=== PATIENT | female | born 1970 | race Caucasian/White ===

== ENCOUNTER 2018-09-22 20:42 | Emergency (ER) | payer OTHER ==
[~2018-09-22] VITALS: Ht 167.6 cm; Wt 113.4 kg
--- OUTSIDE RECORDS SUMMARY | 2018-09-22 20:45 | XMS REPORT ---
Author Author [facility] Address Unknown Phone Unavailable Care Team Providers Care Travel Director Name Role Phone DR Eloisa JENKINS Unavailable Unavailable Tri ROMAN Unavailable Unavailable BA, DR OLIVARES Unavailable Unavailable VIERA, DR MORALES Unavailable Unavailable Problems This patient has no known problems. Allergies, Adverse Reactions, Alerts This patient has no known allergies or adverse reactions. Medications This patient has no known medications. Encounters Start Date/Time End Date/Time Encounter Type Admission Type Attending [facility] Care Department Encounter ID 2018-06-24 23:24:00 2018-06-24 23:24:00 Emergency E MHBL [id number] 2018-03-20 19:25:00 2018-03-20 21:05:00 Emergency E VIVIANE JENKINS [facility] [id number] 2017-07-29 22:12:00 2017-07-29 23:00:00 Emergency E SHMUEL ROMAN [facility] [id number] 2017-03-17 22:42:00 2017-03-18 01:40:00 Emergency E VIVIANE JENKINS [facility] [id number] 2017-02-07 20:32:00 2017-02-07 21:53:00 Emergency E ELISE ROSARIO [facility] [id number] Results Test Description Test Time Test Comments Text Results Atomic Results Result Comments DIRECT INFLUENZA A AND B DETECT 2018-03-20 20:06:00 Direct Exam (test code=DE3) PRESUMPTIVE NEGATIVE FOR THE PRESENCE OF INFLUENZA ANTIGEN CT CHEST W/ CONTRAST *WW*2017-03-18 01:37:42AFTER HOURS SERVICE AT: 03/18/2017 1:36 AMCT Scan of the Chest With ContrastLocation Code [id number]: R52: PAIN, [id number]: COUGHTechnique: Scans were performed on a helical scanner post IV contrast only. One or more of the following dose reduction techniques were used: Automatedexposure control, adjustment of the mA and/or kV according to patient size,and/or utilization of iterative reconstruction technique.Findings:Small focal curvilinear scarring is noted in the right lower lobe. Lungs areotherwise clear. There are no air space densities, consolidation or cavitarylesions. No abnormal pleural thickening or pleural based masses are seen. There is no pleural effusion. There are no endobronchial or endotr acheallesions.There is no evidence of mediastinal, hilar or axillary lymphadenop athy by sizecriteria. Cardiac size is within normal limits. There is no perica rdialeffusion. Aorta is normal in caliber. No abnormal soft tissue enhancement isseen. Impression:Unremarkable CT of the chest. D-DIMER *WW*2017-03-18 00:47:00 * Test Item Value Reference Range Comments D-DIMER (test code=DDI) 246 ng/mL D-DU 0-234 D-DIMER COMMENT (test code=DDCOM) *Level to rule out DVT or PE: <235 ng/mL D-DU* PRO TIME AND PTT *WW*2017-03-18 00:32:00* Test Item Value Reference Range Comments PT (test code=TT) 12.3 s 9.8-13.6 INR (test code=INR) 1.1 INRH (test code=INRH) SUGGESTED THERAPEUTIC RANGE FOR INR: 2.5 - 3.5 For Patients with Prosthetic Valves or Patients with recurrent Thromboembolic Events 2.0 - 3.0 For Most Other Applications PTT (test code=PTT) 25.7 s 20.2-38.0 PTTH (test code=PTTH) To monitor the effectiveness of heparin, we offer the Anti-Xa (Heparin Assay). It can be used for either unfractionated or LMW Heparin. Order Code is ANTI-XA BRAIN NATRIURETIC PROTEIN *WW*2017-03-18 00:23:00* Test Item Value Reference Range Comments proBNP (test code=PBNP) 50 pg/mL 0-125 CARDIAC PROFILE *WW*2017-03-18 00:15:00* Test Item Value Reference Range Comments TROPONIN I (test code=A84) <0.015 ng/mL 0.000-0.045 CKMB (test code=A49) <1.0 ng/mL <=3.6 CPK (test code=32A) 504 IU/L 26-192 AMYLASE AND LIPASE *WW*2017-03-18 00:15:00* Test Item Value Reference Range Comments AMYLASE (test code=10A) 19 U/L 28-100 LIPASE (test code=60A) 213 IU/L 73-393 COMPREHENSIVE METABOLIC BORRERO *WW*2017-03-18 00:15:00* Test Item Value Reference Range Comments GLUCOSE (test code=06D) 131 mg/dL 75-100 SODIUM (test code=01A) 142 mmol/L 136-145 POTASSIUM (test code=01B) 4.1 mmol/L 3.6-5.1 CHLORIDE (test code=04A) 105 mmol/L 98-107 CO2 (test code=02A) 26 mmol/L 22-32 ANION GAP (test code=ANG) 15.1 mmol/L BUN (test code=05D) 10 mg/dL 7-18 CREATININE (test code=03E) 0.8 mg/dL 0.4-1.1 BUN/CREA (test code=BCR) 13 12-20 CALCIUM (test code=09D) 9.2 mg/dL 8.3-9.5 BILI TOTAL (test code=11A) 0.2 mg/dL 0.2-1.0 PROTEIN (test code=07D) 7.0 g/dL 6.4-8.2 ALBUMIN (test code=08D) 3.3 g/dL 3.5-4.8 GLOBULIN (test code=GLB) 3.8 g/dL 1.5-3.8 ALB/GLOB (test code=AGRR) 0.9 1.0-2.6 ALK PHOS (test code=35A) 82 IU/L 42-121 AST (test code=30A) 13 IU/L <=42 ALT (test code=31A) 21 IU/L <=78 DIRECT INFLUENZA A AND B [id number] 00:11:00* Test Item Value Reference Range Comments Direct Exam (test code=DE1) PRESUMPTIVE NEGATIVE FOR THE PRESENCE OF INFLUENZA ANTIGEN SERUM MONOCLONAL *WW*2017-03-18 00:07:00* Test Item Value Reference Range Comments PREG SRM (test code=PGS) NEGATIVE NEGATIVE CBC (INCLUDES AUTOMATED DIFFERENTIAL)*[id number] 00:03:00* Test Item Value Reference Range Comments WBC (test code=WBC) 12.3 10\S\3/uL 4.5-11.0 RBC (test code=RBC) 4.72 10\S\6/uL 4.20-5.60 HGB (test code=HBG) 13.3 g/dL 12.0-15.5 HCT (test code=HCT) 39.8 % 35.0-44.0 MCV (test code=MCV) 84.3 fL 81.0-99.0 MCH (test code=MCH) 28.2 pg 27.0-31.0 MCHC (test code=MCHC) 33.4 g/dL 32.0-36.0 RDW (test code=RDW) 13.4 % 11.5-14.5 PLT (test code=PLT) 280 10\S\3/uL 130-400 MPV (test code=MPV) 10.0 fL 9.4-12.4 NEUTROP # (test code=NE#) 8.1 10\S\3/uL 1.6-8.0 LYMPH # (test code=LY#) 3.1 10\S\3/uL 1.1-3.5 MONOCYTE # (test code=MO#) 0.5 10\S\3/uL 0.0-1.1 EOSINOPH # (test code=EO#) 0.5 10\S\3/uL 0.0-0.7 BASOPHIL # (test code=BA#) 0.1 10\S\3/uL 0.0-0.3 IG # (test code=IG#) 0.04 10\S\3/uL 0.00-0.06 NRBC # (test code=NRBC#) 0.00 10\S\3/uL 0.00-0.01 NEUTROPH % (test code=NE%) 65.8 % 35.0-73.0 LYMPH % (test code=LY%) 25.1 % 20.0-55.0 MONO % (test code=MO%) 4.3 % 2.5-10.0 EOSINOPH % (test code=EO%) 4.1 % 0.0-5.0 BASOPHIL % (test code=BA%) 0.4 % 0.0-2.0 IG % (test code=IG%) 0.3 % 0.0-0.8 NRBC% (test code=NRBC%) 0.0 % 0.0-0.2 MANDIFF (test code=WMDIFF) NO NO RBC MORPH (test code=WRBCMOR) NORMAL XR CHEST 1 VIEW PORTABLE 2017-03-17 23:48:41LOCATION: [id number]: 46-year-old female who presents with a cough.COMMENT: After-hours service at 11:48 p.m.A frontal chest radiograph was obtained at the bedside at 11:41 p.m., andcompared to a prior study of 11/29/16.The lungs are clear and well-aerated. The cardiac silhouette, mona, andmediastinum are within normal limits. The skeleton is intact, and thesurrounding soft tissues are unremarkable. IMPRESSION:Unremarkable portable examination of the chest.THYROID PANEL/SCREEN (TSH) 2016-11-29 20:05:00* Test Item Value Reference Range Comments TSH (test code=WTSH) 2.860 uIU/mL 0.358-3.740 XR CHEST 1 VIEW PORTABLE 2016-11-29 19:36:38LOCATION: [id number]: 46-year-old female who presents with dyspnea.COMMENT: A frontal chest radiograph was obtained at the bedside at 7:27 p.m. and iscompared to a prior study of 06/09/11. The lungs are clear and well-aerated. The cardiac silhouette, mona, andmediastinum are within normal limits. The skeleton is intact, and thesurrounding soft tissues are unremarkable. IMPRESSION:Unremark able portable examination of the chest.
--- OUTSIDE RECORDS SUMMARY | 2018-09-22 20:45 | XMS REPORT | Clinical Summary ---
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 Active levothyroxine (SYNTHROID, Take 112 mcg 0 LEVOXYL) 112 mcg tablet by mouth daily. Active hydrocodone/acetaminophen Take 1 tablet 0 (VICODIN ORAL) by mouth daily. Active aspirin 81 mg chewable Chew 81 mg 0 tablet daily. Active Problems Problem Noted Date Chest pain with moderate risk of acute coronary syndrome 07/12/2017 Social History Date Tobacco Use Types Packs/Day Years Used Current Every Day Smoker Cigarettes 0.5 25 Tobacco Cessation: Ready to Quit: Yes; Counseling Given: Yes Alcohol Use Drinks/Week oz/Week Comments No Sex Assigned at Date Recorded Not on file Industry Job Start Date Occupation Not on file Not on file Not on file Travel End Travel History Travel Start No recent travel history available. Last Filed Vital Signs Not on file Plan of Treatment Health Maintenance Due Date Last Done Comments INFLUENZA VACCINE 09/13/2018 Results Not on fileafter 09/21/2017 Advance Directives Patient has advance care planning documents on file. For more information, [facility] contact: Taz Qiu [address] [place] [address]
[2018-09-22 21:25] LABS: BASOPHILS # (AUTO) 0.1 (0.0-0.1); BASOPHILS % 0.4 % (0.0-1.0); EOSINOPHILS # (AUTO) 0.5 (0.0-0.4); EOSINOPHILS % 3.7 % (0.0-6.0); HEMATOCRIT 41.4 % (34.2-44.1); INR 0.86; LYMPHOCYTES # (AUTO) 4.2 (1.0-3.2); LYMPHOCYTES % 35.2 % (18.0-39.1); MEAN CORPUSCULAR HEMOGLOBIN 28.2 pg (28-32); MEAN CORPUSCULAR HGB CONC 33.8 g/dL (31-35); MEAN CORPUSCULAR VOLUME 83.3 fL (81-99); MONOCYTES # (AUTO) 0.6 (0.2-0.8); MONOCYTES % 4.7 % (4.4-11.3); NEUTROPHILS # (AUTO) 6.7 (2.1-6.9); NEUTROPHILS % 55.7 % (38.7-80.0); PLATELET COUNT 341 x10e3/uL (140-360); PROTHROMBIN TIME 12.2 seconds (11.9-14.5); RED BLOOD COUNT 4.97 x10e6/uL (3.6-5.1); RED CELL DISTRIBUTION WIDTH 13.7 % (11.7-14.4)
[2018-09-22 21:26] LABS: PARTIAL THROMBOPLASTIN TIME 27.9 seconds (23.8-35.5)
[2018-09-22 21:34] LABS: BILIRUBIN,URINE NEGATIVE (NEGATIVE); CLARITY,URINE SL CLOUDY (CLEAR); COLOR,URINE YELLOW (YELLOW); KETONES,URINE NEGATIVE (NEGATIVE); LEUKOCYTE ESTERASE ,URINE NEGATIVE (NEGATIVE); NITRITE,URINE NEGATIVE (NEGATIVE); PROTEIN,URINE DIPSTICK NEGATIVE (NEGATIVE); URINE UROBILINOGEN 0.2 mg/dL (0.2 - 1)
[2018-09-22 21:35] LABS: AMPHETAMINES SCREEN,URINE NEGATIVE (NEGATIVE); BENZODIAZEPINES SCREEN,URINE NEGATIVE (NEGATIVE); PHENCYCLIDINE SCREEN,URINE NEGATIVE (NEGATIVE)
[2018-09-22 22:21] LABS: BACTERIA,URINE FEW /HPF; EPITHELIAL CELLS,URINE MODERATE /LPF; RBC,URINE 0-5 /HPF (0-5); WBC,URINE (MAN) 0-5 /HPF (0-5)
--- NOTE | 2018-09-22 22:22 | Diagnostic Imaging Report ---
EXAMINATION: CHEST 2 VIEWS INDICATION: Chest pain. COMPARISON: None FINDINGS: TUBES and LINES: None. LUNGS: Lungs are well inflated. There is no evidence of pneumonia or pulmonary edema. PLEURA: No pleural effusion or pneumothorax. HEART AND MEDIASTINUM: The cardiomediastinal silhouette is unremarkable. BONES AND SOFT TISSUES: No acute osseous lesion. Degenerative changes of the thoracic. UPPER ABDOMEN: No free air under the diaphragm. IMPRESSION: No acute thoracic abnormality. Signed by: Dr. Antonio Brooks M.D. on 09/22/2018 10:19 PM
[2018-09-23 00:24] LABS: ALANINE AMINOTRANSFERASE 13 IU/L (0-55); ALBUMIN 3.2 g/dL (3.5-5.0); ALBUMIN/GLOBULIN RATIO 0.9 (0.8-2.0); ALKALINE PHOSPHATASE 85 IU/L (40-150); ANION GAP 14.2 mmol/L (8-16); BLOOD UREA NITROGEN 12 mg/dL (7-26); BUN/CREATININE RATIO 16 (6-25); CALCIUM 9.3 mg/dL (8.4-10.2); CARBON DIOXIDE 24 mmol/L (22-29); CHLORIDE 106 mmol/L (98-107); CREATINE KINASE 102 IU/L (29-168); CREATININE, SERUM 0.76 mg/dL (0.57-1.11); EST GLOMERULAR FILTRATION RATE > 60 ML/MIN (60-); GLUCOSE 105 mg/dL (74-118); POTASSIUM 4.2 mmol/L (3.5-5.1); SODIUM 140 mmol/L (136-145)
[2018-09-23 01:16] VITALS: BP 108/74
== END 2018-09-23 01:25 | disposition home or self-care (01) ==
LOC: ER 20:42
DX: R07.89 Other chest pain (principal)
CPT/HCPCS: 36415; 71046; 80053; 80307; 81001; 82550; 82553; 84484; 85025; 85610; 85730; 93005; 99284